=== PATIENT | male | born 1955 | race Caucasian/White ===

== ENCOUNTER 2018-08-16 14:59 | Outpatient (CLI) | payer MEDICARE, MEDICAID ==
[2018-08-16] MEDS ORDERED: NO HOME MEDS (16:16)
[2018-08-16 16:28] LABS: BASOPHILS # (AUTO) 0.1 X10'3 (0-0.2); BASOPHILS % (AUTO) 0.8 % (0-1); EOSINOPHILS # (AUTO) 0.2 X10'3 (0-0.9); EOSINOPHILS % (AUTO) 2.3 % (0-6); LYMPHOCYTES # (AUTO) 1.4 X10'3 (1.1-4.8); LYMPHOCYTES % (AUTO) 20.9 % (21-51); MEAN CORPUSCULAR HEMOGLOBIN 33.3 PG (27.0-31.0); MEAN CORPUSCULAR HGB CONC 34.8 % (33.0-36.5); MEAN CORPUSCULAR VOLUME 95.6 FL (78-98); MEAN PLATELET VOLUME 9.2 FL (7.4-10.4); MONOCYTES # (AUTO) 0.5 X10'3 (0-0.9); MONOCYTES % (AUTO) 8.1 % (2-12); NEUTROPHILS # (AUTO) 4.5 X10'3 (1.8-7.7); NEUTROPHILS % (AUTO) 67.9 % (42-75); PRE OP HEMATOCRIT 49.1 % (42.0-52.0); PRE OP HEMOGLOBIN 17.1 g/dL (14.0-17.9); PRE OP PLATELET COUNT 164 X10'3 (140-440); RED BLOOD COUNT 5.14 X10'6 (4.70-6.10); RED CELL DISTRIBUTION WIDTH 13.6 % (11.5-14.5)
[2018-08-16 16:49] LABS: ALBUMIN 3.1 G/DL (3.4-5.0); ALBUMIN/GLOBULIN RATIO 0.8 (1.1-1.5); ALKALINE PHOSPHATASE 127 IU/L (46-116); BLOOD UREA NITROGEN 22 MG/DL (7-18); BUN/CREATININE RATIO 28.6 (5.4-32.0); CALCIUM 8.9 MG/DL (8.5-10.1); CHLORIDE 108 MMOL/L (99-107); CREATININE 0.77 MG/DL (0.60-1.10); PRE OP ALT 30 U/L (30-65); PRE OP ANION GAP 11 (8-16); PRE OP AST 31 U/L (10-37); PRE OP BILIRUB, TOTAL 1.7 MG/DL (0.0-1.0); PRE OP GLUCOSE 121 MG/DL (70-104); PRE OP POTASSIUM 3.9 MMOL/L (3.4-5.1); PRE OP SODIUM 141 MMOL/L (135-145); TOTAL CARBON DIOXIDE 22.1 MMOL/L (24-32); eGFR > 90 ML/MIN
== END 2018-08-16 23:59 | disposition home or self-care (01) ==
LOC: PRE-OP 14:59 → EDSTATUS 08-17 14:45
PROVIDERS: ATTEND Orthopaedic Surgery
DX: S52.571K Other intraarticular fracture of lower end of right radius, subsequent encounter for closed fracture with nonunion (principal); I48.91 Unspecified atrial fibrillation; R94.31 Abnormal electrocardiogram [ECG] [EKG]; I10 Essential (primary) hypertension; D64.9 Anemia, unspecified; E66.8 Other obesity; M75.41 Impingement syndrome of right shoulder; M75.42 Impingement syndrome of left shoulder; M19.011 Primary osteoarthritis, right shoulder; B18.2 Chronic viral hepatitis C; X58.XXXD Exposure to other specified factors, subsequent encounter
CPT/HCPCS: 36415; 80053; 85025; 93005